=== PATIENT | female | born 1980 | race Asian ===

== ENCOUNTER 2017-09-11 05:40 | Inpatient (IN) | payer OTHER ==
[2017-09-10 10:04] LABS: BILIRUBIN,URINE NEGATIVE (NEGATIVE); BLOOD, URINE NEGATIVE (NEGATIVE); CLARITY/URINE CLEAR (CLEAR); COLOR,URINE YELLOW (YELLOW); GLUCOSE,URINE NEGATIVE (NEGATIVE); KETONES,URINE NEGATIVE (NEGATIVE); LEUKOCYTE ESTERASE ,URINE NEGATIVE (NEGATIVE); NITRITE, URINE NEGATIVE (NEGATIVE); PROTEIN URINE NEGATIVE (NEGATIVE); UROBILINOGEN,URINE 0.2 (0.2-1.0)
[2017-09-10 10:10] LABS: BASOPHILS % (AUTO) 0.3 % (0.0-2.0); EOSINOPHILS % (AUTO) 0.6 % (0.0-4.0); HEMATOCRIT 35.5 % (36-48); HEMOGLOBIN 12.2 g/dL (12.0-16.0); LYMPHOCYTES # (AUTO) 1.3 K/uL (1.0-5.5); LYMPHOCYTES % (AUTO) 18.5 % (20.5-51.5); MEAN CORPUSCULAR HEMOGLOBIN 33 pg (27-31); MEAN CORPUSCULAR HGB CONC 35 % (32-36); MEAN CORPUSCULAR VOLUME 94 fL (79.0-98.0); MONOCYTES # (AUTO) 0.5 K/uL (0.0-1.0); MONOCYTES % (AUTO) 6.9 % (1.7-9.3); NEUTROPHILS # (AUTO) 5.3 K/uL (1.8-7.7); NEUTROPHILS % (AUTO) 73.7 % (40.0-70.0); PLATELET COUNT (AUTO) 225 K/uL (130-430); RED BLOOD CELL COUNT(AUTO) 3.76 MIL/uL (4.2-6.2); RED CELL DISTRIBUTION WIDTH 13.1 % (9.0-15.0); WHITE BLOOD COUNT (AUTO) 7.1 K/uL (4.8-10.8)
[~2017-09-11] VITALS: Ht 165.1 cm; Wt 77.1 kg
[2017-09-11] MEDS ORDERED: LR 1,000 ML IV SCH ×3 (05:41→09:07)
[2017-09-11] MEDS ORDERED: CEFAZOLIN 2 GM IVPB PREMIX 50 ML IV ONE (05:45)
[2017-09-11] MEDS ORDERED: OXYTOCIN/0.9 % SODIUM CHLORIDE 1,000 ML IV ONE (09:07)
[2017-09-11 09:10] VITALS: BP_SYST 108
[2017-09-11] MEDS ORDERED: BISACODYL 10 MG/SUPPOSITORY RC PRN (09:15)
[2017-09-11] MEDS ORDERED: SENNOSIDES/DOCUSATE SODIUM 1 TAB TABLET(SENOKOT-S) PO PRN (09:15)
[2017-09-11] MEDS ORDERED: RHO(D) IMMUNE GLOBULIN/MALTOSE 1500 UNITS/1.3 ML (WINHRO) IM PRN (09:15)
[2017-09-11] MEDS ORDERED: DIPH-TET-PERTUS Vaccine 0.5 ML VIAL (ADACEL) I.M. PRN (09:15)
[2017-09-11] MEDS ORDERED: NALOXONE HCL 0.4 MG/ML AMP (NARCAN) IVP PRN (09:15)
[2017-09-11] MEDS ORDERED: MORPHINE SULFATE 10MG/10ML PF AMP SP SCH (09:15)
[2017-09-11] MEDS ORDERED: SIMETHICONE 80 MG TAB.CHEW PO PRN (09:15)
[2017-09-11] MEDS ORDERED: DOCUSATE SODIUM 100 MG CAPSULE PO PRN (09:15)
[2017-09-11] MEDS ORDERED: MEASLES,MUMPS&RUBELLA VACC/PF 12500 UNIT/0.5 ML VIAL SUBQ PRN (09:15)
[2017-09-11] MEDS ORDERED: KETOROLAC TROMETHAMINE 60 MG/2 ML VIAL IM PRN (09:15)
[2017-09-11] MEDS ORDERED: OXYCODONE/ACETAMINOPHEN 5-325 TABLET PO PRN ×2 (09:15)
[2017-09-11] MEDS ORDERED: ONDANSETRON HCL 4 MG/2 ML VIAL IVP PRN (09:15)
[2017-09-11] MEDS ORDERED: METOCLOPRAMIDE HCL 10 MG/2 ML VIAL IVP PRN (09:15)
[2017-09-11] MEDS ORDERED: DIPHENHYDRAMINE INJ 50 MG/ML VIAL IM PRN (09:15)
[2017-09-11] MEDS ORDERED: HYDROcodone/ACETAMIN 5-325 MG TAB (NORCO/ VICODIN) PO PRN (09:15)
[2017-09-11] MEDS: CEFAZOLIN 1 GM IVPB PREMIX 50 ML IV SCH ×2 (14:05→20:27)
[2017-09-11] MEDS: KETOROLAC TROMETHAMINE 30 MG VIAL IVP SCH (17:52)
[2017-09-12] MEDS: CEFAZOLIN 1 GM IVPB PREMIX 50 ML IV SCH (04:19)
[2017-09-12] MEDS: IBUPROFEN 600 MG TABLET PO SCH ×3 (06:00→17:56)
[2017-09-12] MEDS: KETOROLAC TROMETHAMINE 30 MG VIAL IVP SCH ×3 (07:28→12:00)
[2017-09-13] MEDS: IBUPROFEN 600 MG TABLET PO SCH ×3 (00:04→12:02)
[2017-09-13] MEDS ORDERED: ACETAMINOPHEN 325 MG TABLET PO PRN (04:00)
== END 2017-09-13 14:55 | disposition home or self-care (01) | DRG 766 ==
LOC: SPU 05:40
PROVIDERS: ADMIT Specialist; ATTEND Specialist
PROC: 10D00Z1 Extraction of Products of Conception, Low, Open Approach (ICD-10-PCS; principal; 2017-09-12)
DX: O34.211 Maternal care for low transverse scar from previous cesarean delivery (principal); N85.2 Hypertrophy of uterus; Z37.0 Single live birth; Z3A.39 39 weeks gestation of pregnancy; Z86.32 Personal history of gestational diabetes
CPT/HCPCS: 36415; 81003; 82948; 82962; 85025; 86592; 86886; 86900; 86901; 94760; J0690; J1885; J2405; J2590; J2765

== ENCOUNTER 2021-06-25 07:34 | Observation (INO) | payer OTHER | END 2021-06-25 10:20 | disposition home or self-care (01) | LOC: SPU 07:34 | PROVIDERS: ADMIT Specialist; ATTEND Specialist | DX: O46.93 Antepartum hemorrhage, unspecified, third trimester (principal); Z3A.31 31 weeks gestation of pregnancy | CPT/HCPCS: G0378 ==

== ENCOUNTER 2021-08-09 06:19 | Inpatient (IN) | payer OTHER ==
[2021-08-07 11:14] LABS: BASOPHILS % (AUTO) 0.3 % (0.0-2.0); EOSINOPHILS # (AUTO) 0.1 K/uL (0.0-0.4); EOSINOPHILS % (AUTO) 0.6 % (0.0-4.0); HEMATOCRIT 33.9 % (36-48); HEMOGLOBIN 11.5 g/dL (12.0-16.0); LYMPHOCYTES # (AUTO) 1.2 K/uL (1.0-5.5); LYMPHOCYTES % (AUTO) 13.4 % (20.5-51.5); MEAN CORPUSCULAR HEMOGLOBIN 32 pg (27-31); MEAN CORPUSCULAR HGB CONC 34 % (32-36); MEAN CORPUSCULAR VOLUME 93 fL (79.0-98.0); MONOCYTES # (AUTO) 0.5 K/uL (0.0-1.0); MONOCYTES % (AUTO) 6.2 % (1.7-9.3); NEUTROPHILS # (AUTO) 6.9 K/uL (1.8-7.7); NEUTROPHILS % (AUTO) 79.5 % (40.0-70.0); PLATELET COUNT (AUTO) 219 K/uL (130-430); RED BLOOD CELL COUNT(AUTO) 3.64 MIL/uL (4.2-6.2); RED CELL DISTRIBUTION WIDTH 14.1 % (9.0-15.0); WHITE BLOOD COUNT (AUTO) 8.6 K/uL (4.8-10.8)
[2021-08-07 11:18] LABS: BILIRUBIN,URINE NEGATIVE (NEGATIVE); BLOOD, URINE NEGATIVE (NEGATIVE); CLARITY/URINE CLEAR (CLEAR); COLOR,URINE YELLOW (YELLOW); GLUCOSE,URINE NEGATIVE (NEGATIVE); KETONES,URINE TRACE (NEGATIVE); LEUKOCYTE ESTERASE ,URINE NEGATIVE (NEGATIVE); NITRITE, URINE NEGATIVE (NEGATIVE); PH,URINE 6.5 (5.0-8.0); PROTEIN URINE NEGATIVE (NEGATIVE); UROBILINOGEN,URINE 0.2 (0.2-1.0)
[~2021-08-09] VITALS: Ht 162.6 cm; Wt 77.1 kg
[~2021-08-09 06:19] MED LIST: CEFAZOLIN 2 GM IVPB PREMIX 50 ML IV ONE; LR 1,000 ML IV SCH
[2021-08-09 06:24] VITALS: BP_SYST 124
[2021-08-09 07:15] LABS: INR 0.9 (0.8-1.2); PROTHROMBIN TIME 9.3 SECS (9.5-12.5)
[2021-08-09] MEDS ORDERED: OXYTOCIN 10 UNIT/ML VIAL ONE (07:42)
[2021-08-09] MEDS ORDERED: MORPHINE SULFATE 10MG/10ML PF AMP ONE (07:42)
[2021-08-09] MEDS ORDERED: KETOROLAC TROMETHAMINE 30 MG VIAL ONE (07:42)
[2021-08-09] MEDS ORDERED: LR 1,000 ML IV.SOLN IV ONE (07:42)
[2021-08-09] MEDS ORDERED: ONDANSETRON HCL 4 MG/2 ML VIAL ONE (07:42)
[2021-08-09] MEDS ORDERED: DEXAMETHASONE SOD PHOSPHATE 4 MG/ML VIAL ONE (07:42)
[2021-08-09] MEDS ORDERED: NORMAL SALINE 10 ML VIAL ONE (07:42)
[2021-08-09] MEDS ORDERED: OXYTOCIN/0.9 % SODIUM CHLORIDE 20 UNITS/1,000 ML BAG IV ONE (07:42)
[2021-08-09] MEDS ORDERED: BUPIVACAINE /PF 0.75% 10 ML VIAL INJ ONE (07:42)
[2021-08-09] MEDS ORDERED: NS IRRIG SOLN 1000 ML IR ONE (07:42)
[2021-08-09] MEDS ORDERED: TRIAMCINOLONE ACETONIDE 40 MG/ML ONE (07:42)
[2021-08-09] MEDS ORDERED: LIDOCAINE 2%, 20 ML MDV ONE (07:42)
[2021-08-09] MEDS ORDERED: METHYLERGONOVINE MALEATE 0.2 MG/ML AMP ONE (08:48)
[2021-08-09] MEDS ORDERED: DIPH-TET-PERTUS Vaccine 0.5 ML VIAL (ADACEL) I.M. PRN (09:15)
[2021-08-09] MEDS ORDERED: HYDROcodone/ACETAMIN 5-325 MG TAB (NORCO/ VICODIN) PO PRN (09:15)
[2021-08-09] MEDS ORDERED: ANUSOL 1 EA SUPP.RECT (PREPARATION H) RC PRN (09:15)
[2021-08-09] MEDS ORDERED: OXYCODONE/ACETAMINOPHEN 5-325 TABLET PO PRN (09:15)
[2021-08-09] MEDS ORDERED: NALOXONE HCL 0.4 MG/ML AMP (NARCAN) IVP PRN ×2 (09:15→09:30)
[2021-08-09] MEDS ORDERED: RHO(D) IMMUNE GLOBULIN/MALTOSE 1500 UNITS/1.3 ML (WINHRO) IM PRN (09:15)
[2021-08-09] MEDS ORDERED: MEASLES,MUMPS&RUBELLA VACC/PF 12500 UNIT/0.5 ML VIAL SUBQ PRN (09:15)
[2021-08-09] MEDS ORDERED: OXYCODONE/ACETAMINOPHEN *10*mg/325 mg TABLET PO PRN (09:15)
[2021-08-09] MEDS ORDERED: TEMAZEPAM 15 MG CAPSULE PO PRN (09:15)
[2021-08-09] MEDS ORDERED: LANOLIN 7 GM OINT. TP PRN (09:15)
[2021-08-09] MEDS ORDERED: LR 1,000 ML IV SCH (09:15)
[2021-08-09 09:17] VITALS: BP_SYST 110
[2021-08-09] MEDS ORDERED: DIPHENHYDRAMINE INJ 50 MG/ML VIAL IM PRN (09:30)
[2021-08-09] MEDS ORDERED: MORPHINE SULFATE 10MG/10ML PF AMP SP ONE (09:30)
[2021-08-09] MEDS ORDERED: ONDANSETRON HCL 4 MG/2 ML VIAL IVP PRN ×2 (09:30→20:00)
[2021-08-09] MEDS ORDERED: KETOROLAC TROMETHAMINE 60 MG/2 ML VIAL IM PRN (09:30)
[2021-08-09 11:43] LABS: HEMATOCRIT 36.2 % (36-48); HEMOGLOBIN 12.2 g/dL (12.0-16.0)
[2021-08-09] MEDS ORDERED: CEFAZOLIN 1 GM IVPB PREMIX 50 ML IV SCH (12:00)
[2021-08-09] MEDS ORDERED: KETOROLAC TROMETHAMINE 30 MG VIAL IVP SCH (12:00)
[2021-08-09] MEDS: OXYTOCIN/0.9 % SODIUM CHLORIDE 1,000 ML IV SCH (14:18)
[2021-08-09 19:34] LABS: HEMATOCRIT 31.4 % (36-48); HEMOGLOBIN 10.7 g/dL (12.0-16.0)
[2021-08-09] MEDS: DOCUSATE SODIUM 100 MG CAPSULE PO SCH (20:16)
[2021-08-09] MEDS ORDERED: SENNOSIDES/DOCUSATE SODIUM 1 TAB TABLET(SENOKOT-S) PO SCH (21:00)
[2021-08-09] MEDS: CEFAZOLIN 1 GM IVPB PREMIX 50 ML IV SCH (22:09)
[2021-08-10] MEDS: KETOROLAC TROMETHAMINE 30 MG VIAL IVP SCH ×4 (00:12→17:56)
[2021-08-10] MEDS: OXYTOCIN/0.9 % SODIUM CHLORIDE 1,000 ML IV SCH (00:13)
[2021-08-10] MEDS: SIMETHICONE 80 MG TAB.CHEW PO PRN ×3 (02:08→20:24)
[2021-08-10] MEDS: CEFAZOLIN 1 GM IVPB PREMIX 50 ML IV SCH (04:31)
[2021-08-10 07:31] LABS: BASOPHILS % (AUTO) 0.1 % (0.0-2.0); EOSINOPHILS % (AUTO) 0.2 % (0.0-4.0); HEMATOCRIT 30.4 % (36-48); HEMOGLOBIN 10.3 g/dL (12.0-16.0); LYMPHOCYTES # (AUTO) 1.3 K/uL (1.0-5.5); LYMPHOCYTES % (AUTO) 10.6 % (20.5-51.5); MEAN CORPUSCULAR HEMOGLOBIN 32 pg (27-31); MEAN CORPUSCULAR HGB CONC 34 % (32-36); MEAN CORPUSCULAR VOLUME 93 fL (79.0-98.0); MONOCYTES # (AUTO) 1.2 K/uL (0.0-1.0); MONOCYTES % (AUTO) 9.9 % (1.7-9.3); NEUTROPHILS # (AUTO) 9.6 K/uL (1.8-7.7); NEUTROPHILS % (AUTO) 79.2 % (40.0-70.0); PLATELET COUNT (AUTO) 218 K/uL (130-430); RED BLOOD CELL COUNT(AUTO) 3.27 MIL/uL (4.2-6.2); RED CELL DISTRIBUTION WIDTH 13.8 % (9.0-15.0); WHITE BLOOD COUNT (AUTO) 12.1 K/uL (4.8-10.8)
[2021-08-10] MEDS ORDERED: BISACODYL 10 MG/SUPPOSITORY RC PRN (09:00)
[2021-08-10] MEDS: DOCUSATE SODIUM 100 MG CAPSULE PO SCH (09:08)
[2021-08-11] MEDS: IBUPROFEN 600 MG TABLET PO SCH ×4 (00:46→14:19)
[2021-08-11] MEDS: SIMETHICONE 80 MG TAB.CHEW PO PRN (08:14)
[2021-08-11] MEDS: DOCUSATE SODIUM 100 MG CAPSULE PO SCH (08:14)
== END 2021-08-11 15:48 | disposition home or self-care (01) | DRG 785 ==
LOC: SPU 06:19
PROVIDERS: ADMIT Specialist; ATTEND Specialist
PROC: 0UB70ZZ Excision of Bilateral Fallopian Tubes, Open Approach (ICD-10-PCS; 2021-08-09)
PROC: 10D00Z1 Extraction of Products of Conception, Low, Open Approach (ICD-10-PCS; principal; 2021-08-09 07:40)
DX: O34.211 Maternal care for low transverse scar from previous cesarean delivery (principal); O99.892 Other specified diseases and conditions complicating childbirth; O99.72 Diseases of the skin and subcutaneous tissue complicating childbirth; N85.2 Hypertrophy of uterus; Z20.822 Contact with and (suspected) exposure to COVID-19; L91.0 Hypertrophic scar; N73.6 Female pelvic peritoneal adhesions (postinfective); Z3A.38 38 weeks gestation of pregnancy; Z37.0 Single live birth; Z30.2 Encounter for sterilization
CPT/HCPCS: 36415; 81003; 82962; 85018; 85025; 85610-TC; 85730-TC; 86870; 86886; 86900; 86901; 87635-QW; 88302; 94760; J0690; J1100; J1885; J2001; J2210; J2274; J2405; J2590; J3301; J3490; J7120